=== PATIENT | female | born 1960 | race African-American/Black ===

== ENCOUNTER 2018-06-01 13:42 | Emergency (ER) | payer MEDICAID ==
[~2018-06-01] VITALS: Ht 154.9 cm; Wt 48.0 kg
[2018-06-01 13:50] VITALS: BP 137/83
[2018-06-01 16:36] LABS: BASOPHILS % 0.2 % (0.0-2.0); HEMATOCRIT. 40.7 % (36.0-48.0); HEMOGLOBIN. 13.3 g/dL (12.0-16.0); LYMPHOCYTES % 17.2 % (20.0-50.0); MEAN CORPUSCULAR HEMOGLOBIN 25.4 pg (28.0-32.0); MEAN CORPUSCULAR VOLUME 77.6 fL (81.0-99.0); MEAN PLATELET VOLUME 6.6 fl (7.4-10.4); MONOCYTES % 8.4 % (2.0-8.0); NEUTROPHILS % 74.2 % (40.0-76.0); PLATELET 328 x1000/uL (130-400); RED BLOOD CELL COUNT 5.24 mill/uL (4.2-5.4)
[2018-06-01 16:42] LABS: CHLORIDE 103 mEq/L (98-107)
== END 2018-06-01 18:23 | disposition left against medical advice (07) ==
LOC: ER 13:42
DX: R10.13 Epigastric pain (principal); R10.11 Right upper quadrant pain; R06.02 Shortness of breath; E11.9 Type 2 diabetes mellitus without complications; I10 Essential (primary) hypertension; Z96.649 Presence of unspecified artificial hip joint
CPT/HCPCS: 36415; 80053; 83690; 85025; 99284